=== PATIENT | male | born 1970 | race Caucasian/White ===

== ENCOUNTER 2016-12-18 08:58 | Emergency (ER) | payer OTHER ==
[2016-12-18] MEDS ORDERED: MOTRIN PO ONE (09:49)
--- NOTE | 2016-12-18 09:49 | Emergency Department Report ---
ED Fall HPI - General Chief Complaint: Pain General Stated Complaint: L SHOULDER R KNEE PAIN Time Seen by Provider: 12/18/16 09:32 Source: patient, EMS Mode of arrival: Ambulatory - History of Present Illness Initial Comments: Patient was taken to the ground by PD. Patient denies loss of consciousness, head pain, neck pain, back pain, or paresthesia. Laying only of left shoulder pain and right knee pain. MD Complaint: fall -: Sudden Fall From: standing When Fall Occurred: 1 hour [employer] - Related Data Previous Rx's Medication Instructions Recorded Last Taken Type Ibuprofen [Motrin] 800 mg PO Q8HR PRN #20 tablet 12/18/16 Unknown Rx Allergies Allergy/AdvReac Type Severity Reaction Status Date / Time No Known Allergies Allergy Unverified 12/18/16 09:08 ED Review of Systems ROS: Stated complaint: L SHOULDER R KNEE PAIN Other details as noted in HPI Comment: All other systems reviewed and negative Constitutional: denies: chills, fever Eyes: denies: eye pain, eye discharge, vision change ENT: denies: ear pain, throat pain Respiratory: denies: cough, shortness of breath, wheezing Cardiovascular: denies: chest pain, palpitations Endocrine: no symptoms reported Gastrointestinal: denies: abdominal pain, nausea, vomiting, diarrhea Musculoskeletal: joint swelling, arthralgia Skin: lesions Neurological: denies: headache, weakness, numbness, paresthesias, confusion, abnormal gait, vertigo Psychiatric: denies: anxiety, depression, auditory hallucinations, visual hallucinations, homicidal thoughts, suicidal thoughts ED Past Medical Hx - Past Medical History Previous Medical History?: No - Surgical History Past Surgical History?: No - Social History Smoking Status: Current Every Day Smoker Substance Use Type: Alcohol - Medications Home Medications: Home Medications Medication Instructions Recorded Confirmed Last Taken Type Ibuprofen [Motrin] 800 mg PO Q8HR PRN #20 tablet 12/18/16 Unknown Rx ED Physical Exam - General Limitations: Language Barrier General appearance: alert, in no apparent distress - Head Head exam: Present: atraumatic, normocephalic - Eye Eye exam: Present: normal appearance, PERRL, EOMI - ENT ENT exam: Present: normal exam, mucous membranes moist - Neck Neck exam: Present: normal inspection (no vertebral point tenderness). Absent: tenderness, meningismus, full ROM, lymphadenopathy - Respiratory Respiratory exam: Present: normal lung sounds bilaterally. Absent: respiratory distress, wheezes, rales, rhonchi - Cardiovascular Cardiovascular Exam: Present: regular rate - GI/Abdominal GI/Abdominal exam: Present: soft. Absent: distended, tenderness, guarding, rebound, rigid - Back Exam Back exam: Present: normal inspection. Absent: full ROM, tenderness, CVA tenderness (R), CVA tenderness (L), paraspinal tenderness, vertebral tenderness - Neurological Exam Neurological exam: Present: alert, oriented X3, CN II-XII intact, normal gait - Psychiatric Psychiatric exam: Present: normal mood. Absent: depressed, agitated, anxious, flat affect, manic, homicidal ideation, suicidal ideation - Skin Skin exam: Present: other (clean hemostatic abrasions to right knee and left shoulder.) ED Course Vital Signs 12/18/16 12/18/16 09:09 11:46 Temperature 98 F 98.2 F Pulse Rate 102 H 109 H Respiratory 20 16 Rate Blood Pressure 129/87 Blood Pressure 110/79 [Left] O2 Sat by Pulse 96 98 Oximetry - Reevaluation(s) Reevaluation #1: 12/18/16 11:31 Patient still awake alert and oriented, no distress noted, normotensive normal cardiac. Patient cleared to continue on with [employer] Critical care attestation.: If time is entered above; I have spent that time in minutes in the direct care of this critically ill patient, excluding procedure time. ED Disposition Clinical Impression: Contusion of right knee, Contusion of left shoulder Disposition: DISCHARGED TO HOME OR SELFCARE Is pt being admited?: No Condition: Stable Instructions: Contusion in Adults (ED) Prescriptions: Ibuprofen [Motrin] 800 mg PO Q8HR PRN #20 tablet PRN Reason: Pain
--- NOTE | 2016-12-18 11:02 | XRay Report ---
Left shoulder 3 views: Findings: No bony or articular abnormality. No fracture dislocation or soft tissue calcification. Impression: Essentially negative left shoulder.
--- NOTE | 2016-12-18 11:02 | XRay Report ---
Left clavicle 2 views: History: Fall. Findings: No fracture, lytic lesion or periosteal reaction. Impression: Essentially negative left clavicle.
--- NOTE | 2016-12-18 11:03 | XRay Report ---
Right knee 2 views: History: Fall. Findings: No bony or articular abnormality. No fracture dislocation or soft tissue calcification. Impression: Essentially negative right knee.
[2016-12-18 11:47] VITALS: BP 110/79
== END 2016-12-18 11:47 | disposition home or self-care (01) ==
LOC: EDBD → ED 08:58
DX: S40.012A Contusion of left shoulder, initial encounter (principal); S80.01XA Contusion of right knee, initial encounter; F17.200 Nicotine dependence, unspecified, uncomplicated; W18.30XA Fall on same level, unspecified, initial encounter; Y93.89 Activity, other specified; Y92.89 Other specified places as the place of occurrence of the external cause; Y99.8 Other external cause status